=== PATIENT | male | born 1965 | race Caucasian/White ===

== ENCOUNTER 2020-12-16 14:00 | Inpatient (IN) | payer OTHER ==
[2020-12-20 09:35] VITALS: BMI 45.2
[2020-12-21] MEDS ORDERED: VANCOMYCIN 2 GRAM/400 ML BAG 2 GM in Premix Bag 1 BAG IVPB SCH (06:30)
[2020-12-21] MEDS ORDERED: Sodium Chloride 0.9% 100 ML ONE (06:33)
[2020-12-21] MEDS ORDERED: Tranexamic Acid 1,000 MG/10 ML VIAL ONE (06:33)
[2020-12-21] MEDS ORDERED: Fentanyl 100 MCG/2 ML VIAL ONE ×3 (06:34→08:53)
[2020-12-21] MEDS ORDERED: Midazolam HCl 2 mg/2 ml Vial ONE (06:34)
[2020-12-21] MEDS ORDERED: Albuterol Sulfate 2.5 mg/3 ml Neb ONE (06:37)
[2020-12-21] MEDS ORDERED: HYDROcodone/Acetaminophen 10/325 mg Tablet PO PRN ×2 (06:47)
[2020-12-21] MEDS ORDERED: Acetaminophen 325 MG TAB PO PRN (06:47)
[2020-12-21] MEDS ORDERED: Promethazine HCl 25 MG/ML VIAL IM PRN ×2 (06:47→08:00)
[2020-12-21] MEDS ORDERED: Zolpidem Tartrate 5 MG TAB PO PRN ×2 (06:47→08:00)
[2020-12-21] MEDS ORDERED: Ondansetron PF 4 MG/2 ML Vial IVP PRN ×2 (06:47→08:00)
[2020-12-21] MEDS ORDERED: diphenhydrAMINE 25 MG CAP PO PRN ×2 (06:47→08:00)
[2020-12-21] MEDS ORDERED: RESCUE INH PRN ×2 (06:49→07:08)
[2020-12-21] MEDS ORDERED: EPINEPHrine 1 MG/ML AMP ONE (06:58)
[2020-12-21] MEDS ORDERED: Bupivacaine 0.25% HCL 30 ML VIAL ONE (06:58)
[2020-12-21] MEDS ORDERED: Phenylephrine 10 MG/ML VIAL ONE (06:58)
[2020-12-21] MEDS ORDERED: Lidocaine 1% PF 5 ML VIAL ONE (07:02)
[2020-12-21] MEDS ORDERED: Dexamethasone 20 MG/5 ML VIAL ONE (07:02)
[2020-12-21] MEDS ORDERED: PROPOFOL 200 MG/20 ML VIAL ONE (07:02)
[2020-12-21] MEDS ORDERED: Glycopyrrolate 0.2 MG/ML 5 ML SYRINGE ONE (07:02)
[2020-12-21] MEDS ORDERED: Rocuronium Bromide 10 MG/ML (10ML VIAL) ONE (07:02)
[2020-12-21] MEDS ORDERED: Lidocaine 1.5% w/Epi 1:200K 30 ML VIAL (Epid Use) ONE (07:02)
[2020-12-21] MEDS ORDERED: Ondansetron PF 4 MG/2 ML Vial ONE ×2 (07:02→08:53)
[2020-12-21] MEDS ORDERED: Acetaminophen 500 MG TAB PO PRN (07:54)
[2020-12-21] MEDS ORDERED: diphenhydrAMINE 50 MG/ML VIAL IM PRN (08:00)
[2020-12-21] MEDS ORDERED: traMADol HCl 50 MG TAB PO PRN ×2 (08:00)
[2020-12-21] MEDS ORDERED: Naloxone HCl 0.4 mg/ml Vial IV PRN (08:00)
[2020-12-21] MEDS ORDERED: Promethazine HCl 25 MG SUPP PR PRN (08:00)
[2020-12-21] MEDS ORDERED: diphenhydrAMINE 50 MG/ML VIAL IVP PRN (08:00)
[2020-12-21] MEDS ORDERED: Hydrocerin (Eucerin) Cream 120 gm Jar TOP PRN (08:00)
[2020-12-21] MEDS ORDERED: HYDROcodone/Acetaminophen 5/325 mg Tablet PO PRN ×2 (08:00)
[2020-12-21] MEDS ORDERED: Bupivacaine 0.25% 10 ML VIAL EPIDURAL PRN (08:00)
[2020-12-21] MEDS ORDERED: Naloxone HCl 0.4 mg/ml Vial IVP PRN (08:00)
[2020-12-21] MEDS ORDERED: Non-Formulary Item 1 EACH (Omeprazole [Omeprazole] 20 MG Tab.Rap.Dr) PO SCH (09:00)
[2020-12-21] MEDS ORDERED: Promethazine HCl 25 MG/ML VIAL ONE (09:10)
[2020-12-21] MEDS: Aspirin 81 mg Enteric Coated Tablet PO SCH ×2 (12:57→20:30)
[2020-12-21] MEDS: Sodium Chloride 0.9% 1,000 ML IV SCH ×2 (12:57→18:06)
[2020-12-21] MEDS: Lisinopril 20 MG TAB PO SCH ×2 (12:58→20:30)
[2020-12-21] MEDS: Atenolol 50 MG TAB PO SCH (12:58)
[2020-12-21] MEDS: Multivitamin W/ Minerals 1 TAB PO SCH (12:58)
[2020-12-21] MEDS: Ferrous Gluconate 324 MG TAB PO SCH ×2 (12:58→20:30)
[2020-12-21] MEDS: Senokot S 8.6-50 MG TAB PO SCH ×2 (12:58→20:31)
[2020-12-21] MEDS: Ketorolac Tromethamine 30 MG/ML VIAL IM SCH ×2 (14:11→20:32)
[2020-12-21] MEDS: CEFAZOLIN 2 GM in Premix Bag 1 BAG IVPB SCH ×2 (14:12→20:31)
[2020-12-22] MEDS ORDERED: Insulin Regular 300 UNITS/3 ML VIAL ONE (01:03)
[2020-12-22] MEDS: fentaNYL Citrate/PF 500 MCG, Bupivacaine 10 ML in Sodium Chloride 0.9% 80 ML EPIDURAL SCH ×2 (01:12→17:30)
[2020-12-22] MEDS: Sodium Chloride 0.9% 1,000 ML IV SCH ×3 (02:25→23:14)
[2020-12-22] MEDS: Ketorolac Tromethamine 30 MG/ML VIAL IM SCH ×3 (05:04→20:33)
[2020-12-22 05:10] LABS: Hemoglobin 11.1 g/dL (14.0-18.0); Mean Corpuscular HGB CONC 33.1 g/dL (32.0-36.0); Mean Corpuscular Hemoglobin 31.7 pg (27.0-31.0); Mean Corpuscular Volume 95.7 fL (78.0-98.0); Mean Platelet Volume 11.4 fL (7.4-10.4); Platelet Count 145 thou/uL (130-400); RBC Distribution Width 12.6 % (11.5-14.5); Red Blood Cell (RBC) Count 3.49 mill/uL (4.70-6.10); White Blood Cell (WBC) Count 15.4 thou/uL (4.8-10.8)
[2020-12-22] MEDS: Atenolol 50 MG TAB PO SCH (08:25)
[2020-12-22] MEDS: Multivitamin W/ Minerals 1 TAB PO SCH (08:25)
[2020-12-22] MEDS: Aspirin 81 mg Enteric Coated Tablet PO SCH ×2 (08:25→20:32)
[2020-12-22] MEDS: Ferrous Gluconate 324 MG TAB PO SCH ×2 (08:26→20:32)
[2020-12-22] MEDS: Lisinopril 20 MG TAB PO SCH ×2 (08:26→20:33)
[2020-12-22] MEDS: Senokot S 8.6-50 MG TAB PO SCH ×2 (08:28→20:32)
[2020-12-23] MEDS: Ketorolac Tromethamine 30 MG/ML VIAL IM SCH ×2 (05:36→12:15)
[2020-12-23] MEDS: Atenolol 50 MG TAB PO SCH (08:36)
[2020-12-23] MEDS: Aspirin 81 mg Enteric Coated Tablet PO SCH (08:36)
[2020-12-23] MEDS: Sodium Chloride 0.9% 1,000 ML IV SCH (08:37)
[2020-12-23] MEDS: Lisinopril 20 MG TAB PO SCH (08:37)
[2020-12-23] MEDS: Multivitamin W/ Minerals 1 TAB PO SCH (08:37)
[2020-12-23] MEDS: Senokot S 8.6-50 MG TAB PO SCH (08:37)
[2020-12-23] MEDS: Ferrous Gluconate 324 MG TAB PO SCH (08:37)
[2020-12-23 11:34] VITALS: TEMP 98.2
[2020-12-23 12:41] VITALS: BP 166/84
== END 2020-12-23 14:22 | disposition home or self-care (01) | DRG 470 ==
LOC: SURG A 12-21 05:51 → SJJU 12-21 10:03 → EDSTATUS 12-21 14:00
PROVIDERS: ADMIT Orthopaedic Surgery; ATTEND Orthopaedic Surgery
PROC: 0SR9039 Replacement of Right Hip Joint with Ceramic Synthetic Substitute, Cemented, Open Approach (ICD-10-PCS; principal; 2020-12-21)
DX: M16.11 Unilateral primary osteoarthritis, right hip (principal); I10 Essential (primary) hypertension; Z20.822 Contact with and (suspected) exposure to COVID-19
CPT/HCPCS: 36415; 85027; J0171; J0690; J1100; J1815; J1885; J2001; J2250; J2370; J2405; J2550; J2704; J3010; J3490; J7611; Q0163; S0020